=== PATIENT | male | born 1965 | race Caucasian/White ===

== ENCOUNTER 2020-08-23 09:43 | Emergency (ER) | payer OTHER, SELFPAY ==
[2020-08-23 09:45] VITALS: BP 185/112; PULSE 72; RESP 18; TEMP 35.9; O2SAT 99; BMI 31.2
--- NOTE | 2020-08-23 09:57 | CT_ITS ---
STUDY: CT ABDOMEN AND PELVIS WITHOUT CONTRAST REASON FOR EXAM: Male, 55 years old. LEFT FLANK PAIN, HX [place] RADIATION DOSAGE (If Supplied By Facility): CTDIvol = ( 18.01 ) mGy, DLP = ( 953.84 ) mGycm TECHNIQUE: Transaxial images were obtained from the dome of the diaphragm to the symphysis pubis without oral contrast, and without intravenous contrast. Sagittal and coronal images were reconstructed. Individualized dose optimization techniques were used for this CT. COMPARISON: None. FINDINGS: The visualized lung bases are unremarkable. The visualized portions of the heart are within normal limits. Normal liver. Normal gallbladder and extrahepatic biliary system. Normal spleen. Normal pancreas. Normal bilateral adrenal glands. Tiny nonobstructive right intrarenal calculi. Left perinephric stranding and congestion of the left kidney. Mild degree of a left hydronephrosis and left hydroureter due to a 3.7 mm calculus at the left ureterovesical junction. Normal visualized stomach. Normal small intestine. Normal colon. The appendix is visualized and appears normal. There is scattered atherosclerotic calcification of the abdominal aorta, without a demonstrated aneurysm. Normal inferior vena cava. There is borderline retroperitoneal lymphadenopathy with enlarged nodes no greater than 10mm in the short axis diameter. Mild degree of bladder wall thickening. There are prostatic calcifications. There is a small umbilical hernia containing fat. There are degenerative changes of the visualized lumbar spine. CT/Abdomen/Pelvis without Cont IMPRESSION: 3.7 mm calculus at the left ureterovesical junction causing mild degree of left hydronephrosis and hydroureter and left perinephric stranding. Scattered nonobstructive small left intrarenal calculi. Electronically Signed: Faisal Orona, at 11:21 EDT , Service support ,
--- NOTE | 2020-08-23 09:57 | ED.VIS.GEN ---
History of Present Illness Informant: Patient Onset: Yesterday Context: Sudden Onset Timing: Intermittent Quality: Sharp and stabbing Location: Left flank Current Severity: Mild Maximum Severity: Severe Worsened by: Nothing Relieved by: Nothing Associated Symptoms: Nausea Narrative: 55-year-old male with a history of hypertension and kidney stones presents to the emergency department with left flank pain. It started suddenly yesterday after he ate breakfast. He states it was excruciating but it resolved after about 30 minutes. He has been having intermittent episodes since that time including 1 earlier this morning that was very severe. He feels like his previous kidney stones. He has been urinating normally. He has had nausea without vomiting. No fevers. No diarrhea melena hematochezia. He is not lightheaded or dizzy. He denies chest pain or shortness of breath. Pain does not radiate to his extremities. No weakness or paresthesias. No trauma. Rest of his review of systems are negative. Prior similar symptoms: Yes Recent Illness/Hospitalization: No <Richard Kaur - Last Filed: 08/23/20 12:34> <Wolf Isaac - Last Filed: 08/23/20 15:29> Chief Complaint: Flank Pain Past Medical History Prior records reviewed: Yes Past Medical History: - - Hypertension and kidney stones Surgical History: no surgical history Lives: With Family Smoking Status: Unknown if ever smoked Alcohol: Occasional Drugs: None <Richard Kaur - Last Filed: 08/23/20 12:34> <Wolf Isaac - Last Filed: 08/23/20 15:29> - Allergies and Home Meds Allergies/Adverse Reactions: Allergies No Known Allergies Allergy (Verified 08/23/20 09:46) Primary Care Physician: Adis Page MD [STAFF PHYSICIAN] - Steph Hassan MD [Primary Care Provider] - Review of Systems All systems negative except as indicated General: Denies: Chills, Fever, Sweats Eyes: Denies: Visual changes - bilaterally, Diplopia ENT: Denies: Rhinorrhea, Sore throat Cardiovascular: Denies: Chest pain, Palpitations Respiratory: Denies: Dyspnea, Cough, Dyspnea on exertion Gastrointestinal: Reports: Abdominal pain, Nausea. Denies: Vomiting, Diarrhea, Constipation, Melena, Hematochezia Genitourinary: Denies: Dysuria, Hematuria, Frequency Musculoskeletal: Denies: Neck pain, Back pain, Swelling, Extremity Pain Skin: Denies: Rash, Wounds Neurological: Denies: Headache, Weakness, Numbness <Richard Kaur - Last Filed: 08/23/20 12:34> Physical Exam Vital Signs/Narrative: Vital Signs Temp Pulse Resp BP Pulse Ox 08/23/20 09:45 96.7 F L 72 18 185/112 H 99 Inital Vital Signs reviewed: Yes General: Well nourished, Well developed, No Acute Distress Head: Normocephalic, Atraumatic Eyes: Perrl, EOMI ENT: Moist mucous membranes, No rhinorrhea Neck: Supple, Nontender Cardiovascular: Regular rate, Regular rhythm, No murmurs Respiratory: No distress, CTA bilaterally, Chest nontender Abdomen: Soft, Nontender, Nondistended, Normal bowel sounds Back: Nontender, Normal Inspection. Negative for: CVA tenderness, Spinal tenderness Extremities: Nontender, No edema Skin: Normal color, No rash Neurological: Alert, Oriented x3, Cranial nerves II-XII grossly intact, Normal Strength, Normal Sensation, Normal Gait Psychological: Normal affect, Normal Mood <Richard Kaur - Last Filed: 08/23/20 12:34> Vital Signs/Narrative: Vital Signs Resp 08/23/20 12:37 18 <Wolf Isaac - Last Filed: 08/23/20 15:29> Diagnostic/Tx/Re-eval Impressions Abdomen/Pelvis CT 08/23/20 09:57 IMPRESSION: 3.7 mm calculus at the left ureterovesical junction causing mild degree of left hydronephrosis and hydroureter and left perinephric stranding. Scattered nonobstructive small left intrarenal calculi. Electronically Signed: Faisal Orona, at 11:21 EDT , Service support , 08/23/20 09:57 Abdomen/Pelvis without Cont [CT] Stat Laboratory Results 08/23/20 08/23/20 08/23/20 10:20 10: 10: WBC 11.7 H RBC 4.77 Hgb 15.2 Hct 44.7 MCV 93.7 MCH 31.9 MCHC 34.0 RDW Std Deviation 44.1 H RDW Coeff of Mame 12.9 Plt Count 214 MPV 10.4 Immature Gran % (Auto) 0.300 Neut % (Auto) 81.7 H Lymph % (Auto) 9.2 L [place] % (Auto) 8.4 Eos % (Auto) 0.2 Baso % (Auto) 0.2 Absolute Neuts (auto) 9.6 H Absolute Lymphs (auto) 1.08 Nucleated RBC % 0 Sodium 139 Potassium 4.3 Chloride 107 Carbon Dioxide 27.0 Anion Gap 5 BUN 21 H Creatinine 1.42 H Estim Creat Clear Calc 68.60 Est GFR (MDRD) Af Amer 66 Est GFR (MDRD) Non-Af 55 L BUN/Creatinine Ratio 14.8 Glucose 133 H Calcium 9.5 Urine Color Yellow Urine Clarity Clear Urine pH 7.0 Ur Specific [place] 1.015 Urine Protein 30 H Urine Glucose (UA) Normal Urine Ketones Negative Urine Occult Blood 150 H Urine Nitrite Negative Urine Bilirubin Negative Urine Urobilinogen Normal Ur Leukocyte Esterase Negative Urine RBC 10-25 SEEN Urine WBC 0 SEEN Ur Squamous Epith Cells 0 SEEN Urine Bacteria 0 SEEN Urine Mucus 0 SEEN - Medical Decision Making Patient was given fluids and IV Toradol. CBC and BMP unremarkable. Urinalysis negative. CT scan abdomen and pelvis demonstrated a 3.7 mm left sided ureteral stone at the UVJ. Moderate hydronephrosis. Repeat exam patient has improvement of his pain. He is able to tolerate by mouth. His repeat abdominal exam is soft and nontender. The patient will be discharged with a prescription for Percocet Zofran and Flomax and referral to urology for follow-up. He will return for worsening symptoms which we discussed. He was agreeable with plan of care and all questions were answered. <Richard Kaur - Last Filed: 08/23/20 12:34> - Medical Decision Making Patient was seen with me. I did a [id number] examination with the patient. Patient presents with left flank pain that began today. Patient states it began rather suddenly. Patient states pain is localized to the left flank area. Patient denies any fevers or chills. Patient denies any position of comfort. Vital signs are stable. Patient is afebrile. Patient is in no acute distress. Oral mucosa is pink and moist. Neck is supple. Trachea is midline. There is no JVD. Heart was regular rate and rhythm. Lungs are clear and equal bilaterally. Abdomen is soft. Bowel sounds are normal. There is minimal left lower quadrant tenderness. There is no rebound or guarding noted. Cranial nerves II through XII are intact. There are no focal motor or sensory deficits. CT scan of the abdomen and pelvis was obtained. There is a 3.7 mm left ureteral calculus at the UVJ. There is moderate hydronephrosis. CBC and basic metabolic profile were obtained were within normal limits. Urinalysis does not show any evidence of urinary tract infection. Patient was given IV fluids and Toradol here. Patient is feeling better on reevaluation. Patient was given prescriptions for Percocet, Zofran, and Flomax. Patient was instructed to follow-up with his primary care physician in 5 to 7 days. Patient was also given a referral for urology follow-up. Patient understood and was agreeable with the plan. All questions were answered. <Wolf Isaac - Last Filed: 08/23/20 15:29> ED Disposition <Richard Kaur - Last Filed: 08/23/20 12:34> <Wolf Isaac - Last Filed: 08/23/20 15:29> - Plan for ED Patient: Disposition: Home or Assisted Living Diagnosis: Kidney stone on left side Instructions: ED Renal Stone w Colic Prescriptions: Tamsulosin HCl [Flomax] 0.4 mg PO DAILY #7 cap Transmission Status: Received by [id number] Oxycodone HCl/Acetaminophen [Percocet 5/325] 1 tab PO Q6H PRN PRN 3 Days #12 tab PRN Reason: Pain Transmission Status: Received by [id number] Ondansetron [Zofran Odt] 4 mg PO Q8H PRN PRN #10 tab PRN Reason: Nausea Transmission Status: Received by [id number] Referrals: Steph Hassan MD [Primary Care Provider] - Adis Page MD [STAFF PHYSICIAN] -
[2020-08-23] MEDS: 0.9% Normal Saline 1,000 ML 250 ML IV (10:18)
[2020-08-23] MEDS: Ketorolac 30 MG/ML Syringe IV (10:18)
[2020-08-23 10:28] LABS: Bacteria 0 SEEN /hpf (None Seen); Mucous, Urine 0 SEEN /hpf (<or=2+); Squamous Epithelial Cells - UA 0 SEEN /hpf (0-5); White Blood Cells 0 SEEN /hpf (0-5)
[2020-08-23 10:31] LABS: Absolute Lymphocyte Count 1.08 X10^3/uL (0.83-4.51); Absolute Neutrophil Count 9.6 X10^3/uL (2.0-7.7); Basophil# 0.02 X10^3/uL; Basophil% 0.2 % (0-1); Color, Urine Yellow (Yellow); Eosinophil# 0.02 X10^3/uL; Eosinophils% 0.2 % (0-5); Glucose, Dipstick Normal (Normal); Hematocrit 44.7 % (40-54); Hemoglobin 15.2 g/dL (13.0-16.5); Ketone-Dipstick Negative (Negative); Leukocyte Esterase-Dipstick Negative /ul (Negative); Lymphocyte # 1.08 X10^3/ul (4.0); Lymphocyte % 9.2 % (19-41); Mean Corpuscular Hgb 31.9 pg (27.0-32.0); Mean Corpuscular Volume 93.7 fL (80-94); Mean Platelet Vol. 10.4 fl (6.2-12.0); Monocyte# 0.99 X10^3/uL; Monocyte% 8.4 % (0-10); NRBC Flagged by Analyzer 0 % (0-5); Neutrophil # 9.57 X10^3/uL (2.7-7.7); Neutrophil % 81.7 % (47-70); Nitrite-Dipstick Negative (Negative); Occult Blood-Urine 150 /ul (Negative); Platelet Count 214 K/mm3 (150-450); Protein-Dipstick 30 mg/dl (Negative); RBC Distribution Width CV 12.9 % (11.6-14.6); RBC Distribution Width SD 44.1 fl (35.1-43.9); Red Blood Count 4.77 M/mm3 (4.6-6.2); Specific Gravity, Urine 1.015 (1.002-1.030); Urine Bilirubin Dipstick Negative (Negative); Urine Clarity Clear (Clear); Urine Urobilinogen Normal (Normal); White Blood Count 11.7 K/mm3 (4.4-11.0)
[2020-08-23 10:38] LABS: Red Blood Cells-Urine 10-25 SEEN /hpf (0-5)
[2020-08-23 10:46] LABS: Anion Gap 5 (5-15); BUN 21 mg/dL (7-18); BUN/Creat Ratio 14.8 RATIO (10-20); Calcium,Total 9.5 mg/dL (8.5-10.1); Chloride 107 mmol/L (98-107); Creatinine, Serum 1.42 mg/dL (0.70-1.30); EST Glomerular Filtration Rate 55 mL/min (>60); Est Glom Filt Rate - Afr Amer 66 mL/min (>60); Glucose 133 mg/dL (74-106); Potassium 4.3 mmol/L (3.5-5.1); Sodium Level 139 mmol/L (136-145)
[2020-08-23 12:37] VITALS: RESP 18
== END 2020-08-23 12:58 | disposition home or self-care (01) ==
PROVIDERS: Emergency Provider Physician Assistant Medical; PCP Internal Medicine
DX: N20.0 Calculus of kidney (principal); Z87.442 Personal history of urinary calculi; I10 Essential (primary) hypertension
CPT/HCPCS: 74176; 80048; 81001; 85025; 96361; 96374; 99283; J7030; A4216